=== PATIENT | female | born 1940 | race Caucasian/White ===

== ENCOUNTER 2021-12-01 05:44 | Inpatient (IN) | payer MEDICARE ==
[2021-12-01] MEDS ORDERED: Acetaminophen/HYDROcodone 325-5 MG Tab PO PRN (13:59)
[2021-12-01] MEDS ORDERED: Furosemide 80 MG Tab PO PRN (13:59)
[2021-12-01] MEDS ORDERED: [UNRECOGNIZED DRUG - REMARK] SCH (14:45)
[2021-12-01] MEDS: Acetaminophen/HYDROcodone 325-5 MG Tab PO PRN ×2 (17:32→22:36)
[2021-12-01] MEDS: prednisoLONE Acetate 1% Ophth Susp 5 ML Bottle EYEBOTH SCH (19:58)
[2021-12-01] MEDS: Nortriptyline 25 MG Cap PO PRN (19:58)
[2021-12-01] MEDS: Sodium Chloride 0.9% 10 ML Syringe FLUSH SCH ×2 (19:58→21:27)
[2021-12-01] MEDS: Heparin Sodium 100 Units/ML 3 ML Syringe FLUSH SCH (21:26)
[2021-12-02] MEDS: Loperamide 2 MG Cap PO PRN ×2 (00:16→11:34)
[2021-12-02] MEDS: Acetaminophen/HYDROcodone 325-5 MG Tab PO PRN ×4 (02:58→20:49)
[2021-12-02] MEDS: Rifampin 150 MG Cap PO SCH (07:59)
[2021-12-02] MEDS: Celecoxib 100 MG Cap PO SCH (07:59)
[2021-12-02] MEDS: Lisinopril 20 MG Tab PO SCH (07:59)
[2021-12-02] MEDS: amLODIPine 10 MG Tab PO SCH (08:00)
[2021-12-02] MEDS ORDERED: Pantoprazole 40 MG Tab.CR PO SCH (08:00)
[2021-12-02] MEDS: Enoxaparin 40 MG/0.4 ML Syringe SUBCUT SCH (08:00)
[2021-12-02] MEDS: Polyethylene Glycol 3350 Powder 17 GM Packet PO SCH (08:01)
[2021-12-02] MEDS: prednisoLONE Acetate 1% Ophth Susp 5 ML Bottle EYEBOTH SCH ×2 (08:01→20:53)
[2021-12-02] MEDS: Sodium Chloride 0.9% 10 ML Syringe FLUSH SCH ×3 (08:04→20:51)
[2021-12-02] MEDS: Heparin Sodium 100 Units/ML 3 ML Syringe FLUSH SCH ×2 (09:24→22:03)
[2021-12-02] MEDS ORDERED: Ondansetron 4 MG in Sodium Chloride 0.9% 100 ML IV STA (11:21)
[2021-12-02] MEDS ORDERED: Ondansetron 4 MG Tab.DIS PO STA (11:25)
[2021-12-02] MEDS: Ondansetron 4 MG/2 ML SDV IVPUSH PRN (13:43)
[2021-12-02] MEDS: Heparin Sodium 100 Units/ML 3 ML Syringe FLUSH PRN (13:44)
[2021-12-02] MEDS: Sodium Chloride 0.9% 10 ML Syringe FLUSH PRN ×2 (13:44→22:03)
[2021-12-02] MEDS: DULAGLUTIDE 1.5 MG/0.5 ML SQ SCH (15:29)
[2021-12-03] MEDS: Acetaminophen/HYDROcodone 325-5 MG Tab PO PRN ×4 (00:38→19:41)
[2021-12-03] MEDS: Loperamide 2 MG Cap PO PRN ×5 (03:59→19:41)
[2021-12-03] MEDS: Pantoprazole 40 MG Tab.CR PO SCH (06:42)
[2021-12-03] MEDS: Heparin Sodium 100 Units/ML 3 ML Syringe FLUSH PRN ×2 (06:52→21:12)
[2021-12-03] MEDS: Ondansetron 4 MG/2 ML SDV IVPUSH PRN ×2 (06:52→13:50)
[2021-12-03] MEDS: Sodium Chloride 0.9% 10 ML Syringe FLUSH PRN ×2 (06:53→19:43)
[2021-12-03] MEDS: Enoxaparin 40 MG/0.4 ML Syringe SUBCUT SCH (09:40)
[2021-12-03] MEDS: Celecoxib 100 MG Cap PO SCH (09:42)
[2021-12-03] MEDS: Rifampin 150 MG Cap PO SCH (09:42)
[2021-12-03] MEDS: amLODIPine 10 MG Tab PO SCH (09:42)
[2021-12-03] MEDS: Lisinopril 20 MG Tab PO SCH (09:43)
[2021-12-03] MEDS: prednisoLONE Acetate 1% Ophth Susp 5 ML Bottle EYEBOTH SCH ×2 (09:43→20:05)
[2021-12-03] MEDS: Polyethylene Glycol 3350 Powder 17 GM Packet PO SCH (09:45)
[2021-12-03] MEDS: Sodium Chloride 0.9% 10 ML Syringe FLUSH SCH ×2 (09:47→21:11)
[2021-12-03] MEDS: Heparin Sodium 100 Units/ML 3 ML Syringe FLUSH SCH ×2 (12:52→21:17)
[2021-12-03] MEDS: Nortriptyline 25 MG Cap PO PRN (21:13)
[2021-12-04] MEDS: Pantoprazole 40 MG Tab.CR PO SCH (06:13)
[2021-12-04] MEDS: Acetaminophen/HYDROcodone 325-5 MG Tab PO PRN (06:33)
[2021-12-04] MEDS: prednisoLONE Acetate 1% Ophth Susp 5 ML Bottle EYEBOTH SCH ×2 (08:04→19:46)
[2021-12-04] MEDS: Celecoxib 100 MG Cap PO SCH (08:05)
[2021-12-04] MEDS: Rifampin 150 MG Cap PO SCH (08:05)
[2021-12-04] MEDS: Lisinopril 20 MG Tab PO SCH (08:05)
[2021-12-04] MEDS: Enoxaparin 40 MG/0.4 ML Syringe SUBCUT SCH (08:06)
[2021-12-04] MEDS: amLODIPine 10 MG Tab PO SCH (08:06)
[2021-12-04] MEDS: Polyethylene Glycol 3350 Powder 17 GM Packet PO SCH (08:07)
[2021-12-04] MEDS: Sodium Chloride 0.9% 10 ML Syringe FLUSH SCH ×2 (08:08→19:46)
[2021-12-04] MEDS: BISMUTH SUBSALICYLATE 262 MG PO PRN ×2 (09:37→12:04)
[2021-12-04] MEDS: Heparin Sodium 100 Units/ML 3 ML Syringe FLUSH SCH ×2 (09:50→20:39)
[2021-12-04] MEDS: oxyCODONE 5 MG Tab PO PRN ×2 (13:58→20:38)
[2021-12-04] MEDS: Acetaminophen 325 MG Tab PO PRN (13:59)
[2021-12-04] MEDS: Pregabalin 50 MG Cap PO SCH (19:43)
[2021-12-04] MEDS: Nortriptyline 25 MG Cap PO PRN (20:39)
[2021-12-04] MEDS: Ondansetron 4 MG Tab.DIS PO PRN (20:39)
[2021-12-05] MEDS: Acetaminophen/HYDROcodone 325-5 MG Tab PO PRN ×3 (02:30→22:33)
[2021-12-05] MEDS: Pantoprazole 40 MG Tab.CR PO SCH (05:59)
[2021-12-05] MEDS: Enoxaparin 40 MG/0.4 ML Syringe SUBCUT SCH (08:22)
[2021-12-05] MEDS: Lisinopril 20 MG Tab PO SCH (08:23)
[2021-12-05] MEDS: Pregabalin 50 MG Cap PO SCH ×2 (08:23→19:52)
[2021-12-05] MEDS: Celecoxib 100 MG Cap PO SCH (08:23)
[2021-12-05] MEDS: Rifampin 150 MG Cap PO SCH (08:23)
[2021-12-05] MEDS: Ferrous Sulfate 325 MG Tab PO SCH (08:25)
[2021-12-05] MEDS: Sodium Chloride 0.9% 10 ML Syringe FLUSH SCH ×2 (08:26→19:52)
[2021-12-05] MEDS: amLODIPine 10 MG Tab PO SCH (08:26)
[2021-12-05] MEDS: prednisoLONE Acetate 1% Ophth Susp 5 ML Bottle EYEBOTH SCH ×2 (08:26→21:28)
[2021-12-05] MEDS: BISMUTH SUBSALICYLATE 262 MG PO PRN (08:39)
[2021-12-05] MEDS: oxyCODONE 5 MG Tab PO PRN ×2 (09:24→17:38)
[2021-12-05] MEDS: Heparin Sodium 100 Units/ML 3 ML Syringe FLUSH SCH ×2 (09:38→21:27)
[2021-12-05] MEDS: Sodium Chloride 0.9% 10 ML Syringe FLUSH PRN (21:26)
[2021-12-05] MEDS: Nortriptyline 25 MG Cap PO PRN (21:32)
[2021-12-06] MEDS: Acetaminophen/HYDROcodone 325-5 MG Tab PO PRN ×2 (03:07→20:05)
[2021-12-06] MEDS: Pantoprazole 40 MG Tab.CR PO SCH (06:22)
[2021-12-06] MEDS: Pregabalin 50 MG Cap PO SCH ×2 (08:20→20:05)
[2021-12-06] MEDS: amLODIPine 10 MG Tab PO SCH (08:21)
[2021-12-06] MEDS: oxyCODONE 5 MG Tab PO PRN ×2 (08:23→21:07)
[2021-12-06] MEDS: Lisinopril 20 MG Tab PO SCH (08:25)
[2021-12-06] MEDS: Sodium Chloride 0.9% 10 ML Syringe FLUSH SCH ×2 (08:26→22:15)
[2021-12-06] MEDS: Celecoxib 100 MG Cap PO SCH (08:26)
[2021-12-06] MEDS: Ferrous Sulfate 325 MG Tab PO SCH (08:26)
[2021-12-06] MEDS: prednisoLONE Acetate 1% Ophth Susp 5 ML Bottle EYEBOTH SCH ×2 (08:26→20:04)
[2021-12-06] MEDS: Enoxaparin 40 MG/0.4 ML Syringe SUBCUT SCH (08:26)
[2021-12-06] MEDS: Rifampin 150 MG Cap PO SCH (08:26)
[2021-12-06] MEDS: Heparin Sodium 100 Units/ML 3 ML Syringe FLUSH SCH ×2 (08:27→21:02)
[2021-12-06] MEDS: BISMUTH SUBSALICYLATE 262 MG PO PRN ×2 (11:07→16:57)
[2021-12-06] MEDS: Loperamide 2 MG Cap PO PRN (16:57)
[2021-12-06] MEDS: Sodium Chloride 0.9% 10 ML Syringe FLUSH PRN (21:02)
[2021-12-06] MEDS: Nortriptyline 25 MG Cap PO PRN (21:03)
[2021-12-07] MEDS: Acetaminophen/HYDROcodone 325-5 MG Tab PO PRN ×5 (02:34→20:25)
[2021-12-07] MEDS: Pantoprazole 40 MG Tab.CR PO SCH (06:14)
[2021-12-07] MEDS: Sodium Chloride 0.9% 10 ML Syringe FLUSH PRN ×2 (06:58→21:42)
[2021-12-07 07:19] LABS: CHLORIDE,CL 105 mmol/L (98-107); SODIUM,NA 140 mmol/L (136-145)
[2021-12-07] MEDS: Enoxaparin 40 MG/0.4 ML Syringe SUBCUT SCH (07:39)
[2021-12-07] MEDS: Celecoxib 100 MG Cap PO SCH (07:39)
[2021-12-07] MEDS: Ferrous Sulfate 325 MG Tab PO SCH (07:39)
[2021-12-07] MEDS: Rifampin 150 MG Cap PO SCH (07:39)
[2021-12-07] MEDS: Pregabalin 50 MG Cap PO SCH ×2 (07:39→20:27)
[2021-12-07] MEDS: Lisinopril 20 MG Tab PO SCH (07:40)
[2021-12-07] MEDS: prednisoLONE Acetate 1% Ophth Susp 5 ML Bottle EYEBOTH SCH ×2 (07:41→20:28)
[2021-12-07] MEDS: Sodium Chloride 0.9% 10 ML Syringe FLUSH SCH ×2 (07:44→20:24)
[2021-12-07] MEDS: amLODIPine 10 MG Tab PO SCH (07:51)
[2021-12-07] MEDS: Heparin Sodium 100 Units/ML 3 ML Syringe FLUSH SCH ×2 (10:16→21:43)
[2021-12-07] MEDS: oxyCODONE 5 MG Tab PO PRN (22:49)
[2021-12-08] MEDS: Acetaminophen/HYDROcodone 325-5 MG Tab PO PRN ×5 (03:25→20:35)
[2021-12-08] MEDS: Pantoprazole 40 MG Tab.CR PO SCH (06:26)
[2021-12-08] MEDS: Celecoxib 100 MG Cap PO SCH (07:21)
[2021-12-08] MEDS: Rifampin 150 MG Cap PO SCH (07:21)
[2021-12-08] MEDS: Lisinopril 20 MG Tab PO SCH (07:21)
[2021-12-08] MEDS: Pregabalin 50 MG Cap PO SCH ×2 (07:21→20:36)
[2021-12-08] MEDS: Ferrous Sulfate 325 MG Tab PO SCH (07:21)
[2021-12-08] MEDS: amLODIPine 10 MG Tab PO SCH (07:22)
[2021-12-08] MEDS: prednisoLONE Acetate 1% Ophth Susp 5 ML Bottle EYEBOTH SCH ×2 (07:23→20:39)
[2021-12-08] MEDS: Enoxaparin 40 MG/0.4 ML Syringe SUBCUT SCH (07:23)
[2021-12-08] MEDS: Sodium Chloride 0.9% 10 ML Syringe FLUSH SCH ×2 (07:26→20:40)
[2021-12-08] MEDS: Heparin Sodium 100 Units/ML 3 ML Syringe FLUSH SCH ×2 (08:17→21:37)
[2021-12-08] MEDS: Sodium Chloride 0.9% 10 ML Syringe FLUSH PRN (21:36)
[2021-12-09] MEDS: Acetaminophen/HYDROcodone 325-5 MG Tab PO PRN ×2 (01:44→11:32)
[2021-12-09] MEDS: Pantoprazole 40 MG Tab.CR PO SCH (07:43)
[2021-12-09] MEDS: Ferrous Sulfate 325 MG Tab PO SCH (08:24)
[2021-12-09] MEDS: prednisoLONE Acetate 1% Ophth Susp 5 ML Bottle EYEBOTH SCH ×2 (08:24→20:04)
[2021-12-09] MEDS: Rifampin 150 MG Cap PO SCH (08:24)
[2021-12-09] MEDS: Pregabalin 50 MG Cap PO SCH ×2 (08:24→19:51)
[2021-12-09] MEDS: Celecoxib 100 MG Cap PO SCH (08:24)
[2021-12-09] MEDS: amLODIPine 10 MG Tab PO SCH (08:25)
[2021-12-09] MEDS: Lisinopril 20 MG Tab PO SCH (08:25)
[2021-12-09] MEDS: Enoxaparin 40 MG/0.4 ML Syringe SUBCUT SCH (08:26)
[2021-12-09] MEDS: Sodium Chloride 0.9% 10 ML Syringe FLUSH SCH ×2 (08:27→19:54)
[2021-12-09] MEDS: Heparin Sodium 100 Units/ML 3 ML Syringe FLUSH SCH ×2 (09:29→21:48)
[2021-12-09] MEDS: DULAGLUTIDE 1.5 MG/0.5 ML SQ SCH (09:55)
[2021-12-09] MEDS: Acetaminophen 325 MG Tab PO PRN (13:56)
[2021-12-09] MEDS: BISMUTH SUBSALICYLATE 262 MG PO PRN (13:59)
[2021-12-09] MEDS: Loperamide 2 MG Cap PO PRN ×3 (17:38→21:49)
[2021-12-09] MEDS: oxyCODONE 5 MG Tab PO PRN (19:51)
[2021-12-10] MEDS: Acetaminophen/HYDROcodone 325-5 MG Tab PO PRN ×5 (00:30→17:33)
[2021-12-10] MEDS: Pantoprazole 40 MG Tab.CR PO SCH (06:15)
[2021-12-10] MEDS: Sodium Chloride 0.9% 10 ML Syringe FLUSH PRN ×2 (07:22→21:32)
[2021-12-10] MEDS: Heparin Sodium 100 Units/ML 3 ML Syringe FLUSH PRN (07:23)
[2021-12-10] MEDS: Rifampin 150 MG Cap PO SCH (09:07)
[2021-12-10] MEDS: Ferrous Sulfate 325 MG Tab PO SCH (09:08)
[2021-12-10] MEDS: Enoxaparin 40 MG/0.4 ML Syringe SUBCUT SCH (09:08)
[2021-12-10] MEDS: Pregabalin 50 MG Cap PO SCH ×2 (09:08→19:41)
[2021-12-10] MEDS: Celecoxib 100 MG Cap PO SCH (09:08)
[2021-12-10] MEDS: prednisoLONE Acetate 1% Ophth Susp 5 ML Bottle EYEBOTH SCH ×2 (09:09→19:41)
[2021-12-10] MEDS: Lisinopril 20 MG Tab PO SCH (09:12)
[2021-12-10] MEDS: amLODIPine 10 MG Tab PO SCH (09:12)
[2021-12-10] MEDS: Heparin Sodium 100 Units/ML 3 ML Syringe FLUSH SCH ×2 (10:01→21:32)
[2021-12-10] MEDS: Sodium Chloride 0.9% 10 ML Syringe FLUSH SCH ×2 (10:01→19:42)
[2021-12-10] MEDS: Acetaminophen 325 MG Tab PO PRN (10:35)
[2021-12-10] MEDS: oxyCODONE 5 MG Tab PO PRN (19:41)
[2021-12-10] MEDS: Nortriptyline 25 MG Cap PO PRN (21:31)
[2021-12-11] MEDS: Acetaminophen/HYDROcodone 325-5 MG Tab PO PRN (01:51)
[2021-12-11] MEDS: Pantoprazole 40 MG Tab.CR PO SCH (06:24)
[2021-12-11] MEDS: oxyCODONE 5 MG Tab PO PRN ×3 (06:24→21:11)
[2021-12-11] MEDS: prednisoLONE Acetate 1% Ophth Susp 5 ML Bottle EYEBOTH SCH ×2 (08:36→20:06)
[2021-12-11] MEDS: Sodium Chloride 0.9% 10 ML Syringe FLUSH SCH ×2 (08:38→19:45)
[2021-12-11] MEDS: Ferrous Sulfate 325 MG Tab PO SCH (08:39)
[2021-12-11] MEDS: Rifampin 150 MG Cap PO SCH (08:39)
[2021-12-11] MEDS: Pregabalin 50 MG Cap PO SCH ×2 (08:39→19:45)
[2021-12-11] MEDS: amLODIPine 10 MG Tab PO SCH (08:39)
[2021-12-11] MEDS: Celecoxib 100 MG Cap PO SCH (08:39)
[2021-12-11] MEDS: Lisinopril 20 MG Tab PO SCH (08:39)
[2021-12-11] MEDS: Enoxaparin 40 MG/0.4 ML Syringe SUBCUT SCH (08:45)
[2021-12-11] MEDS: Heparin Sodium 100 Units/ML 3 ML Syringe FLUSH SCH ×2 (10:05→21:08)
[2021-12-11] MEDS: Sodium Chloride 0.9% 10 ML Syringe FLUSH PRN ×2 (10:05→21:07)
[2021-12-11] MEDS: BISMUTH SUBSALICYLATE 262 MG PO PRN (10:08)
[2021-12-11] MEDS: Acetaminophen 325 MG Tab PO PRN (12:59)
[2021-12-11] MEDS: Ondansetron 4 MG/2 ML SDV IVPUSH PRN (13:01)
[2021-12-11] MEDS: Nortriptyline 25 MG Cap PO PRN (21:11)
[2021-12-12] MEDS: Acetaminophen/HYDROcodone 325-5 MG Tab PO PRN (02:26)
[2021-12-12] MEDS: Pantoprazole 40 MG Tab.CR PO SCH (06:36)
[2021-12-12] MEDS: oxyCODONE 5 MG Tab PO PRN ×3 (06:37→21:00)
[2021-12-12] MEDS: Sodium Chloride 0.9% 10 ML Syringe FLUSH SCH ×2 (09:11→20:12)
[2021-12-12] MEDS: Lisinopril 20 MG Tab PO SCH (09:12)
[2021-12-12] MEDS: Ferrous Sulfate 325 MG Tab PO SCH (09:12)
[2021-12-12] MEDS: Rifampin 150 MG Cap PO SCH (09:12)
[2021-12-12] MEDS: Pregabalin 50 MG Cap PO SCH ×2 (09:12→20:05)
[2021-12-12] MEDS: Celecoxib 100 MG Cap PO SCH (09:12)
[2021-12-12] MEDS: amLODIPine 10 MG Tab PO SCH (09:13)
[2021-12-12] MEDS: prednisoLONE Acetate 1% Ophth Susp 5 ML Bottle EYEBOTH SCH ×2 (09:13→20:11)
[2021-12-12] MEDS: Enoxaparin 40 MG/0.4 ML Syringe SUBCUT SCH (09:13)
[2021-12-12] MEDS: Sodium Chloride 0.9% 10 ML Syringe FLUSH PRN ×2 (10:18→21:02)
[2021-12-12] MEDS: Heparin Sodium 100 Units/ML 3 ML Syringe FLUSH SCH ×2 (10:19→21:02)
[2021-12-12] MEDS: Acetaminophen 325 MG Tab PO PRN (12:41)
[2021-12-12] MEDS: Nortriptyline 25 MG Cap PO PRN (21:00)
[2021-12-13] MEDS: Acetaminophen/HYDROcodone 325-5 MG Tab PO PRN ×3 (02:05→21:33)
[2021-12-13] MEDS: oxyCODONE 5 MG Tab PO PRN ×3 (05:01→23:57)
[2021-12-13] MEDS: Fluticasone Propionate Nasal Spray 9.9 ML BOTTLE NASBOTH PRN (05:10)
[2021-12-13] MEDS: Pantoprazole 40 MG Tab.CR PO SCH ×2 (05:11→06:11)
[2021-12-13] MEDS: Celecoxib 100 MG Cap PO SCH (07:40)
[2021-12-13] MEDS: Pregabalin 50 MG Cap PO SCH ×2 (07:40→20:09)
[2021-12-13] MEDS: Ferrous Sulfate 325 MG Tab PO SCH (07:40)
[2021-12-13] MEDS: Rifampin 150 MG Cap PO SCH (07:41)
[2021-12-13] MEDS: Lisinopril 20 MG Tab PO SCH (07:41)
[2021-12-13] MEDS: amLODIPine 10 MG Tab PO SCH (07:41)
[2021-12-13] MEDS: Enoxaparin 40 MG/0.4 ML Syringe SUBCUT SCH (07:41)
[2021-12-13] MEDS: prednisoLONE Acetate 1% Ophth Susp 5 ML Bottle EYEBOTH SCH ×2 (07:42→20:10)
[2021-12-13] MEDS: Sodium Chloride 0.9% 10 ML Syringe FLUSH SCH ×2 (07:42→20:12)
[2021-12-13] MEDS: Heparin Sodium 100 Units/ML 3 ML Syringe FLUSH SCH ×2 (08:53→21:30)
[2021-12-13] MEDS: BISMUTH SUBSALICYLATE 262 MG PO PRN (20:08)
[2021-12-13] MEDS: Sodium Chloride 0.9% 10 ML Syringe FLUSH PRN (21:29)
[2021-12-13] MEDS: Nortriptyline 25 MG Cap PO PRN (21:29)
[2021-12-14] MEDS: Acetaminophen/HYDROcodone 325-5 MG Tab PO PRN ×4 (05:05→19:40)
[2021-12-14] MEDS: Pantoprazole 40 MG Tab.CR PO SCH ×2 (05:05→08:54)
[2021-12-14] MEDS: Sodium Chloride 0.9% 10 ML Syringe FLUSH PRN ×2 (06:26→20:49)
[2021-12-14] MEDS: Heparin Sodium 100 Units/ML 3 ML Syringe FLUSH PRN (06:27)
[2021-12-14 07:10] LABS: CHLORIDE,CL 103 mmol/L (98-107); SODIUM,NA 139 mmol/L (136-145)
[2021-12-14 07:11] LABS: ANION GAP 7.8 mmol/L (5-15)
[2021-12-14] MEDS: prednisoLONE Acetate 1% Ophth Susp 5 ML Bottle EYEBOTH SCH ×2 (08:29→19:43)
[2021-12-14] MEDS: Pregabalin 50 MG Cap PO SCH ×2 (08:30→19:40)
[2021-12-14] MEDS: Celecoxib 100 MG Cap PO SCH (08:30)
[2021-12-14] MEDS: Ferrous Sulfate 325 MG Tab PO SCH (08:30)
[2021-12-14] MEDS: Sodium Chloride 0.9% 10 ML Syringe FLUSH SCH ×2 (08:30→19:42)
[2021-12-14] MEDS: Rifampin 150 MG Cap PO SCH (08:30)
[2021-12-14] MEDS: Enoxaparin 40 MG/0.4 ML Syringe SUBCUT SCH (08:30)
[2021-12-14] MEDS: Lisinopril 20 MG Tab PO SCH (08:31)
[2021-12-14] MEDS: amLODIPine 10 MG Tab PO SCH (08:31)
[2021-12-14] MEDS: Heparin Sodium 100 Units/ML 3 ML Syringe FLUSH SCH ×2 (09:35→20:51)
[2021-12-14] MEDS: Furosemide 40 MG Tab PO SCH (09:35)
[2021-12-14] MEDS: BISMUTH SUBSALICYLATE 262 MG PO PRN ×2 (13:06→19:44)
[2021-12-14] MEDS: oxyCODONE 5 MG Tab PO PRN (21:10)
[2021-12-14] MEDS: Nortriptyline 25 MG Cap PO PRN (21:10)
[2021-12-15] MEDS: Acetaminophen/HYDROcodone 325-5 MG Tab PO PRN ×3 (02:51→20:03)
[2021-12-15] MEDS: oxyCODONE 5 MG Tab PO PRN ×2 (05:24→14:23)
[2021-12-15] MEDS: Pantoprazole 40 MG Tab.CR PO SCH ×2 (05:25→06:46)
[2021-12-15] MEDS: Ferrous Sulfate 325 MG Tab PO SCH (07:37)
[2021-12-15] MEDS: Rifampin 150 MG Cap PO SCH (07:37)
[2021-12-15] MEDS: Pregabalin 50 MG Cap PO SCH ×3 (07:37→20:05)
[2021-12-15] MEDS: prednisoLONE Acetate 1% Ophth Susp 5 ML Bottle EYEBOTH SCH ×2 (07:37→21:00)
[2021-12-15] MEDS: Furosemide 40 MG Tab PO SCH (07:37)
[2021-12-15] MEDS: Celecoxib 100 MG Cap PO SCH (07:37)
[2021-12-15] MEDS: Enoxaparin 40 MG/0.4 ML Syringe SUBCUT SCH (07:38)
[2021-12-15] MEDS: Sodium Chloride 0.9% 10 ML Syringe FLUSH SCH ×2 (07:38→20:04)
[2021-12-15] MEDS: amLODIPine 10 MG Tab PO SCH (07:39)
[2021-12-15] MEDS: Lisinopril 20 MG Tab PO SCH (07:39)
[2021-12-15] MEDS: Heparin Sodium 100 Units/ML 3 ML Syringe FLUSH SCH ×2 (09:25→21:25)
[2021-12-15] MEDS ORDERED: [UNRECOGNIZED DRUG - REMARK] SCH ×2 (12:30→12:45)
[2021-12-15] MEDS: Sodium Chloride 0.9% 10 ML Syringe FLUSH PRN (21:25)
[2021-12-15] MEDS: Nortriptyline 25 MG Cap PO PRN (21:27)
[2021-12-16] MEDS: Acetaminophen/HYDROcodone 325-5 MG Tab PO PRN ×4 (01:45→20:03)
[2021-12-16] MEDS: Pantoprazole 40 MG Tab.CR PO SCH (06:02)
[2021-12-16] MEDS: oxyCODONE 5 MG Tab PO PRN (06:02)
[2021-12-16] MEDS: prednisoLONE Acetate 1% Ophth Susp 5 ML Bottle EYEBOTH SCH ×2 (07:38→20:06)
[2021-12-16] MEDS: Celecoxib 100 MG Cap PO SCH (07:39)
[2021-12-16] MEDS: Rifampin 150 MG Cap PO SCH (07:39)
[2021-12-16] MEDS: Ferrous Sulfate 325 MG Tab PO SCH (07:39)
[2021-12-16] MEDS: Enoxaparin 40 MG/0.4 ML Syringe SUBCUT SCH (07:39)
[2021-12-16] MEDS: Furosemide 40 MG Tab PO SCH (07:39)
[2021-12-16] MEDS: Pregabalin 50 MG Cap PO SCH ×3 (07:39→20:05)
[2021-12-16] MEDS: Lisinopril 20 MG Tab PO SCH (07:40)
[2021-12-16] MEDS: amLODIPine 10 MG Tab PO SCH (07:40)
[2021-12-16] MEDS: Sodium Chloride 0.9% 10 ML Syringe FLUSH SCH ×2 (07:40→20:04)
[2021-12-16] MEDS: Heparin Sodium 100 Units/ML 3 ML Syringe FLUSH SCH ×2 (08:51→20:49)
[2021-12-16] MEDS: DULAGLUTIDE 1.5 MG/0.5 ML SQ SCH (09:47)
[2021-12-16] MEDS: Nortriptyline 25 MG Cap PO PRN (23:24)
[2021-12-17] MEDS: Acetaminophen/HYDROcodone 325-5 MG Tab PO PRN (04:30)
[2021-12-17] MEDS: Pantoprazole 40 MG Tab.CR PO SCH (06:02)
[2021-12-17] MEDS: Enoxaparin 40 MG/0.4 ML Syringe SUBCUT SCH (09:33)
[2021-12-17] MEDS: Acetaminophen 325 MG Tab PO PRN ×2 (09:35→17:45)
[2021-12-17] MEDS: Rifampin 150 MG Cap PO SCH (09:35)
[2021-12-17] MEDS: Furosemide 40 MG Tab PO SCH (09:36)
[2021-12-17] MEDS: Lisinopril 20 MG Tab PO SCH (09:36)
[2021-12-17] MEDS: Ferrous Sulfate 325 MG Tab PO SCH (09:36)
[2021-12-17] MEDS: amLODIPine 10 MG Tab PO SCH (09:37)
[2021-12-17] MEDS: Celecoxib 100 MG Cap PO SCH (09:37)
[2021-12-17] MEDS: Pregabalin 50 MG Cap PO SCH ×3 (09:37→20:09)
[2021-12-17] MEDS: prednisoLONE Acetate 1% Ophth Susp 5 ML Bottle EYEBOTH SCH ×2 (09:38→20:10)
[2021-12-17] MEDS: Sodium Chloride 0.9% 10 ML Syringe FLUSH SCH ×2 (09:39→20:10)
[2021-12-17] MEDS: Fluticasone Propionate Nasal Spray 9.9 ML BOTTLE NASBOTH PRN (09:39)
[2021-12-17] MEDS: Sodium Chloride 0.9% 10 ML Syringe FLUSH PRN (10:10)
[2021-12-17] MEDS: Heparin Sodium 100 Units/ML 3 ML Syringe FLUSH SCH ×2 (10:11→20:48)
[2021-12-17] MEDS: oxyCODONE 5 MG Tab PO PRN (17:44)
[2021-12-17] MEDS: Nortriptyline 25 MG Cap PO PRN (20:09)
[2021-12-18] MEDS: Acetaminophen/HYDROcodone 325-5 MG Tab PO PRN ×2 (02:44→16:03)
[2021-12-18] MEDS: Pantoprazole 40 MG Tab.CR PO SCH (06:33)
[2021-12-18] MEDS: Rifampin 150 MG Cap PO SCH (07:49)
[2021-12-18] MEDS: prednisoLONE Acetate 1% Ophth Susp 5 ML Bottle EYEBOTH SCH ×2 (07:49→19:44)
[2021-12-18] MEDS: Enoxaparin 40 MG/0.4 ML Syringe SUBCUT SCH (07:49)
[2021-12-18] MEDS: Fluticasone Propionate Nasal Spray 9.9 ML BOTTLE NASBOTH PRN (07:49)
[2021-12-18] MEDS: Lisinopril 20 MG Tab PO SCH (07:50)
[2021-12-18] MEDS: Ferrous Sulfate 325 MG Tab PO SCH (07:50)
[2021-12-18] MEDS: Celecoxib 100 MG Cap PO SCH (07:50)
[2021-12-18] MEDS: Pregabalin 50 MG Cap PO SCH ×3 (07:50→19:43)
[2021-12-18] MEDS: Furosemide 40 MG Tab PO SCH ×3 (07:50→19:43)
[2021-12-18] MEDS: amLODIPine 10 MG Tab PO SCH (07:50)
[2021-12-18] MEDS: Acetaminophen 325 MG Tab PO PRN (07:51)
[2021-12-18] MEDS: Sodium Chloride 0.9% 10 ML Syringe FLUSH SCH ×2 (07:58→19:45)
[2021-12-18] MEDS: Heparin Sodium 100 Units/ML 3 ML Syringe FLUSH SCH ×2 (09:38→21:05)
[2021-12-18] MEDS: Potassium Chloride 10 MEQ Tab.ER PO SCH (09:43)
[2021-12-18] MEDS: oxyCODONE 5 MG Tab PO PRN ×2 (09:57→19:42)
[2021-12-18] MEDS: Nortriptyline 25 MG Cap PO PRN (19:43)
[2021-12-19] MEDS: Acetaminophen/HYDROcodone 325-5 MG Tab PO PRN ×3 (00:08→23:36)
[2021-12-19] MEDS: Pantoprazole 40 MG Tab.CR PO SCH (06:31)
[2021-12-19] MEDS: Enoxaparin 40 MG/0.4 ML Syringe SUBCUT SCH (08:15)
[2021-12-19] MEDS: prednisoLONE Acetate 1% Ophth Susp 5 ML Bottle EYEBOTH SCH ×2 (08:15→20:05)
[2021-12-19] MEDS: Celecoxib 100 MG Cap PO SCH (08:16)
[2021-12-19] MEDS: Furosemide 40 MG Tab PO SCH ×2 (08:16→19:02)
[2021-12-19] MEDS: Rifampin 150 MG Cap PO SCH (08:16)
[2021-12-19] MEDS: Potassium Chloride 10 MEQ Tab.ER PO SCH (08:16)
[2021-12-19] MEDS: Pregabalin 50 MG Cap PO SCH ×3 (08:17→20:03)
[2021-12-19] MEDS: oxyCODONE 5 MG Tab PO PRN (08:17)
[2021-12-19] MEDS: amLODIPine 10 MG Tab PO SCH (08:18)
[2021-12-19] MEDS: Ferrous Sulfate 325 MG Tab PO SCH (08:18)
[2021-12-19] MEDS: Lisinopril 20 MG Tab PO SCH (08:18)
[2021-12-19] MEDS: Acetaminophen 325 MG Tab PO PRN (08:18)
[2021-12-19] MEDS: Sodium Chloride 0.9% 10 ML Syringe FLUSH SCH ×2 (08:20→20:05)
[2021-12-19] MEDS: Sodium Chloride 0.9% 10 ML Syringe FLUSH PRN (09:12)
[2021-12-19] MEDS: Heparin Sodium 100 Units/ML 3 ML Syringe FLUSH SCH ×2 (09:13→20:43)
[2021-12-19] MEDS: Nortriptyline 25 MG Cap PO PRN (20:03)
[2021-12-20] MEDS: Enoxaparin 40 MG/0.4 ML Syringe SUBCUT SCH (09:27)
[2021-12-20] MEDS: Celecoxib 100 MG Cap PO SCH (09:30)
[2021-12-20] MEDS: Pregabalin 50 MG Cap PO SCH ×3 (09:31→19:47)
[2021-12-20] MEDS: Acetaminophen 325 MG Tab PO PRN (09:31)
[2021-12-20] MEDS: oxyCODONE 5 MG Tab PO PRN (09:31)
[2021-12-20] MEDS: Potassium Chloride 10 MEQ Tab.ER PO SCH (09:32)
[2021-12-20] MEDS: Lisinopril 20 MG Tab PO SCH (09:32)
[2021-12-20] MEDS: Furosemide 40 MG Tab PO SCH (09:32)
[2021-12-20] MEDS: Rifampin 150 MG Cap PO SCH (09:32)
[2021-12-20] MEDS: Ferrous Sulfate 325 MG Tab PO SCH (09:32)
[2021-12-20] MEDS: amLODIPine 10 MG Tab PO SCH (09:33)
[2021-12-20] MEDS: Pantoprazole 40 MG Tab.CR PO SCH (09:33)
[2021-12-20] MEDS: prednisoLONE Acetate 1% Ophth Susp 5 ML Bottle EYEBOTH SCH ×2 (09:34→19:52)
[2021-12-20] MEDS: Fluticasone Propionate Nasal Spray 9.9 ML BOTTLE NASBOTH PRN (09:35)
[2021-12-20] MEDS: Sodium Chloride 0.9% 10 ML Syringe FLUSH SCH ×2 (09:38→21:28)
[2021-12-20] MEDS: Heparin Sodium 100 Units/ML 3 ML Syringe FLUSH SCH ×2 (09:39→20:34)
[2021-12-20] MEDS: Acetaminophen/HYDROcodone 325-5 MG Tab PO PRN (19:11)
[2021-12-20] MEDS: Nortriptyline 25 MG Cap PO PRN (19:47)
[2021-12-21] MEDS: Acetaminophen/HYDROcodone 325-5 MG Tab PO PRN ×2 (00:10→17:43)
[2021-12-21] MEDS: oxyCODONE 5 MG Tab PO PRN ×2 (05:41→21:54)
[2021-12-21] MEDS: Pantoprazole 40 MG Tab.CR PO SCH (06:25)
[2021-12-21 07:23] LABS: CHLORIDE,CL 102 mmol/L (98-107); SODIUM,NA 139 mmol/L (136-145)
[2021-12-21 07:24] LABS: ANION GAP 5.6 mmol/L (5-15)
[2021-12-21] MEDS: Pregabalin 50 MG Cap PO SCH ×3 (08:37→19:49)
[2021-12-21] MEDS: Lisinopril 20 MG Tab PO SCH (08:37)
[2021-12-21] MEDS: Celecoxib 100 MG Cap PO SCH (08:37)
[2021-12-21] MEDS: Rifampin 150 MG Cap PO SCH (08:37)
[2021-12-21] MEDS: Furosemide 40 MG Tab PO SCH ×2 (08:38→17:44)
[2021-12-21] MEDS: Ferrous Sulfate 325 MG Tab PO SCH (08:38)
[2021-12-21] MEDS: amLODIPine 10 MG Tab PO SCH (08:38)
[2021-12-21] MEDS: Potassium Chloride 10 MEQ Tab.ER PO SCH (08:38)
[2021-12-21] MEDS: Enoxaparin 40 MG/0.4 ML Syringe SUBCUT SCH (08:38)
[2021-12-21] MEDS: Sodium Chloride 0.9% 10 ML Syringe FLUSH SCH ×2 (08:38→19:51)
[2021-12-21] MEDS: prednisoLONE Acetate 1% Ophth Susp 5 ML Bottle EYEBOTH SCH ×2 (08:39→19:51)
[2021-12-21] MEDS: Fluticasone Propionate Nasal Spray 9.9 ML BOTTLE NASBOTH PRN (08:40)
[2021-12-21] MEDS: Sodium Chloride 0.9% 10 ML Syringe FLUSH PRN (09:24)
[2021-12-21] MEDS: Heparin Sodium 100 Units/ML 3 ML Syringe FLUSH SCH ×2 (09:25→20:36)
[2021-12-21] MEDS: Acetaminophen 325 MG Tab PO PRN (11:21)
[2021-12-21] MEDS: Nortriptyline 25 MG Cap PO PRN (19:49)
[2021-12-22] MEDS: Pantoprazole 40 MG Tab.CR PO SCH (06:23)
[2021-12-22] MEDS: Sodium Chloride 0.9% 10 ML Syringe FLUSH SCH ×2 (08:48→19:50)
[2021-12-22] MEDS: prednisoLONE Acetate 1% Ophth Susp 5 ML Bottle EYEBOTH SCH ×2 (08:49→19:52)
[2021-12-22] MEDS: Fluticasone Propionate Nasal Spray 9.9 ML BOTTLE NASBOTH PRN (08:49)
[2021-12-22] MEDS: Rifampin 150 MG Cap PO SCH (08:50)
[2021-12-22] MEDS: Enoxaparin 40 MG/0.4 ML Syringe SUBCUT SCH (08:50)
[2021-12-22] MEDS: oxyCODONE 5 MG Tab PO PRN ×2 (08:50→21:09)
[2021-12-22] MEDS: Lisinopril 20 MG Tab PO SCH (08:51)
[2021-12-22] MEDS: Celecoxib 100 MG Cap PO SCH (08:51)
[2021-12-22] MEDS: Ferrous Sulfate 325 MG Tab PO SCH (08:51)
[2021-12-22] MEDS: Potassium Chloride 10 MEQ Tab.ER PO SCH (08:51)
[2021-12-22] MEDS: amLODIPine 10 MG Tab PO SCH (08:51)
[2021-12-22] MEDS: Pregabalin 50 MG Cap PO SCH ×3 (08:51→19:52)
[2021-12-22] MEDS: Furosemide 40 MG Tab PO SCH ×2 (08:52→16:02)
[2021-12-22] MEDS: Heparin Sodium 100 Units/ML 3 ML Syringe FLUSH SCH ×2 (09:58→21:09)
[2021-12-22] MEDS: Sodium Chloride 0.9% 10 ML Syringe FLUSH PRN (09:58)
[2021-12-22] MEDS: Acetaminophen/HYDROcodone 325-5 MG Tab PO PRN (17:46)
[2021-12-22] MEDS: Nortriptyline 25 MG Cap PO PRN (21:09)
[2021-12-23] MEDS: Pantoprazole 40 MG Tab.CR PO SCH (06:14)
[2021-12-23] MEDS: Acetaminophen/HYDROcodone 325-5 MG Tab PO PRN ×2 (06:16→11:43)
[2021-12-23] MEDS: Enoxaparin 40 MG/0.4 ML Syringe SUBCUT SCH (08:10)
[2021-12-23] MEDS: Ferrous Sulfate 325 MG Tab PO SCH (08:11)
[2021-12-23] MEDS: Celecoxib 100 MG Cap PO SCH (08:11)
[2021-12-23] MEDS: Rifampin 150 MG Cap PO SCH (08:11)
[2021-12-23] MEDS: Potassium Chloride 10 MEQ Tab.ER PO SCH (08:12)
[2021-12-23] MEDS: Furosemide 40 MG Tab PO SCH ×2 (08:12→15:53)
[2021-12-23] MEDS: Lisinopril 20 MG Tab PO SCH (08:12)
[2021-12-23] MEDS: amLODIPine 10 MG Tab PO SCH (08:12)
[2021-12-23] MEDS: Pregabalin 50 MG Cap PO SCH ×3 (08:12→19:35)
[2021-12-23] MEDS: Sodium Chloride 0.9% 10 ML Syringe FLUSH SCH ×2 (08:13→19:35)
[2021-12-23] MEDS: prednisoLONE Acetate 1% Ophth Susp 5 ML Bottle EYEBOTH SCH ×2 (08:22→19:36)
[2021-12-23] MEDS: DULAGLUTIDE 1.5 MG/0.5 ML SQ SCH (08:56)
[2021-12-23] MEDS: Heparin Sodium 100 Units/ML 3 ML Syringe FLUSH SCH ×2 (08:56→20:38)
[2021-12-23] MEDS: oxyCODONE 5 MG Tab PO PRN (20:36)
[2021-12-23] MEDS: Nortriptyline 25 MG Cap PO PRN (20:36)
[2021-12-24] MEDS: Acetaminophen/HYDROcodone 325-5 MG Tab PO PRN ×3 (04:38→15:50)
[2021-12-24] MEDS: Pantoprazole 40 MG Tab.CR PO SCH (06:36)
[2021-12-24] MEDS: Sodium Chloride 0.9% 10 ML Syringe FLUSH PRN (06:37)
[2021-12-24] MEDS: Sodium Chloride 0.9% 10 ML Syringe FLUSH SCH ×2 (08:45→20:18)
[2021-12-24] MEDS: Enoxaparin 40 MG/0.4 ML Syringe SUBCUT SCH (08:46)
[2021-12-24] MEDS: Heparin Sodium 100 Units/ML 3 ML Syringe FLUSH SCH ×2 (08:47→21:29)
[2021-12-24] MEDS: Rifampin 150 MG Cap PO SCH (08:47)
[2021-12-24] MEDS: Celecoxib 100 MG Cap PO SCH (08:47)
[2021-12-24] MEDS: Pregabalin 50 MG Cap PO SCH ×3 (08:48→20:18)
[2021-12-24] MEDS: Ferrous Sulfate 325 MG Tab PO SCH (08:48)
[2021-12-24] MEDS: amLODIPine 10 MG Tab PO SCH (08:48)
[2021-12-24] MEDS: Potassium Chloride 10 MEQ Tab.ER PO SCH (08:48)
[2021-12-24] MEDS: Furosemide 40 MG Tab PO SCH ×2 (08:48→15:50)
[2021-12-24] MEDS: prednisoLONE Acetate 1% Ophth Susp 5 ML Bottle EYEBOTH SCH ×2 (08:49→20:18)
[2021-12-24] MEDS: Lisinopril 20 MG Tab PO SCH (08:49)
[2021-12-24] MEDS: BISMUTH SUBSALICYLATE 262 MG PO PRN (08:56)
[2021-12-24] MEDS: Ondansetron 4 MG Tab.DIS PO PRN ×2 (08:59→21:29)
[2021-12-24] MEDS: oxyCODONE 5 MG Tab PO PRN (12:00)
[2021-12-24] MEDS: Nortriptyline 25 MG Cap PO PRN (21:29)
[2021-12-25] MEDS: oxyCODONE 5 MG Tab PO PRN (02:10)
[2021-12-25] MEDS: Pantoprazole 40 MG Tab.CR PO SCH (06:23)
[2021-12-25] MEDS: Ferrous Sulfate 325 MG Tab PO SCH (09:00)
[2021-12-25] MEDS: Furosemide 40 MG Tab PO SCH ×2 (09:00→16:41)
[2021-12-25] MEDS: Pregabalin 50 MG Cap PO SCH ×3 (09:00→20:14)
[2021-12-25] MEDS: amLODIPine 10 MG Tab PO SCH (09:00)
[2021-12-25] MEDS: Lisinopril 20 MG Tab PO SCH (09:00)
[2021-12-25] MEDS: Celecoxib 100 MG Cap PO SCH (09:01)
[2021-12-25] MEDS: Rifampin 150 MG Cap PO SCH (09:01)
[2021-12-25] MEDS: Potassium Chloride 10 MEQ Tab.ER PO SCH (09:01)
[2021-12-25] MEDS: prednisoLONE Acetate 1% Ophth Susp 5 ML Bottle EYEBOTH SCH ×2 (09:02→20:16)
[2021-12-25] MEDS: Enoxaparin 40 MG/0.4 ML Syringe SUBCUT SCH (09:03)
[2021-12-25] MEDS: Sodium Chloride 0.9% 10 ML Syringe FLUSH SCH ×2 (09:03→20:13)
[2021-12-25] MEDS: Heparin Sodium 100 Units/ML 3 ML Syringe FLUSH SCH ×2 (09:06→21:01)
[2021-12-25] MEDS: Acetaminophen/HYDROcodone 325-5 MG Tab PO PRN (12:23)
[2021-12-25] MEDS: Nortriptyline 25 MG Cap PO PRN (20:14)
[2021-12-26] MEDS: Acetaminophen 325 MG Tab PO PRN ×2 (02:31→19:42)
[2021-12-26] MEDS: Pantoprazole 40 MG Tab.CR PO SCH (06:37)
[2021-12-26] MEDS: Acetaminophen/HYDROcodone 325-5 MG Tab PO PRN (06:37)
[2021-12-26] MEDS: Celecoxib 100 MG Cap PO SCH (08:30)
[2021-12-26] MEDS: Ferrous Sulfate 325 MG Tab PO SCH (09:09)
[2021-12-26] MEDS: Pregabalin 50 MG Cap PO SCH ×3 (09:10→19:39)
[2021-12-26] MEDS: Potassium Chloride 10 MEQ Tab.ER PO SCH (09:10)
[2021-12-26] MEDS: amLODIPine 10 MG Tab PO SCH (09:10)
[2021-12-26] MEDS: Furosemide 40 MG Tab PO SCH ×2 (09:10→15:35)
[2021-12-26] MEDS: Lisinopril 20 MG Tab PO SCH (09:10)
[2021-12-26] MEDS: Enoxaparin 40 MG/0.4 ML Syringe SUBCUT SCH (09:11)
[2021-12-26] MEDS: Rifampin 150 MG Cap PO SCH (09:11)
[2021-12-26] MEDS: prednisoLONE Acetate 1% Ophth Susp 5 ML Bottle EYEBOTH SCH ×2 (09:12→19:40)
[2021-12-26] MEDS: Heparin Sodium 100 Units/ML 3 ML Syringe FLUSH SCH ×2 (09:12→20:25)
[2021-12-26] MEDS: Sodium Chloride 0.9% 10 ML Syringe FLUSH SCH ×2 (09:13→19:39)
[2021-12-26] MEDS: Nortriptyline 25 MG Cap PO PRN (19:39)
[2021-12-27] MEDS: Acetaminophen/HYDROcodone 325-5 MG Tab PO PRN ×3 (01:24→19:50)
[2021-12-27] MEDS: Pantoprazole 40 MG Tab.CR PO SCH (06:04)
[2021-12-27] MEDS: prednisoLONE Acetate 1% Ophth Susp 5 ML Bottle EYEBOTH SCH ×2 (08:54→19:51)
[2021-12-27] MEDS: Furosemide 40 MG Tab PO SCH ×2 (08:55→13:58)
[2021-12-27] MEDS: Ferrous Sulfate 325 MG Tab PO SCH (08:55)
[2021-12-27] MEDS: Potassium Chloride 10 MEQ Tab.ER PO SCH (08:55)
[2021-12-27] MEDS: amLODIPine 10 MG Tab PO SCH (08:55)
[2021-12-27] MEDS: Rifampin 150 MG Cap PO SCH (08:55)
[2021-12-27] MEDS: Heparin Sodium 100 Units/ML 3 ML Syringe FLUSH SCH ×2 (08:56→20:31)
[2021-12-27] MEDS: Sodium Chloride 0.9% 10 ML Syringe FLUSH SCH ×2 (08:56→19:55)
[2021-12-27] MEDS: Celecoxib 100 MG Cap PO SCH (08:56)
[2021-12-27] MEDS: Lisinopril 20 MG Tab PO SCH (08:57)
[2021-12-27] MEDS: Pregabalin 50 MG Cap PO SCH ×3 (08:59→19:50)
[2021-12-27] MEDS: Enoxaparin 40 MG/0.4 ML Syringe SUBCUT SCH (08:59)
[2021-12-27] MEDS: Ondansetron 4 MG Tab.DIS PO PRN (09:41)
[2021-12-27] MEDS: Hypromellose 0.3% Ophth Soln 15 ML Bottle EYEBOTH PRN ×2 (16:14→19:50)
[2021-12-27] MEDS: Nortriptyline 25 MG Cap PO PRN (19:50)
[2021-12-28] MEDS: Acetaminophen/HYDROcodone 325-5 MG Tab PO PRN ×2 (05:52→13:20)
[2021-12-28] MEDS: Pantoprazole 40 MG Tab.CR PO SCH (05:59)
[2021-12-28 07:26] LABS: ANION GAP 7.9 mmol/L (5-15)
[2021-12-28] MEDS: Enoxaparin 40 MG/0.4 ML Syringe SUBCUT SCH (09:39)
[2021-12-28] MEDS: Rifampin 150 MG Cap PO SCH (09:40)
[2021-12-28] MEDS: Lisinopril 20 MG Tab PO SCH (09:41)
[2021-12-28] MEDS: Ferrous Sulfate 325 MG Tab PO SCH (09:42)
[2021-12-28] MEDS: Celecoxib 100 MG Cap PO SCH (09:42)
[2021-12-28] MEDS: Furosemide 40 MG Tab PO SCH (09:42)
[2021-12-28] MEDS: Pregabalin 50 MG Cap PO SCH ×3 (09:43→19:49)
[2021-12-28] MEDS: Potassium Chloride 10 MEQ Tab.ER PO SCH (09:43)
[2021-12-28] MEDS: oxyCODONE 5 MG Tab PO PRN (09:43)
[2021-12-28] MEDS: Hypromellose 0.3% Ophth Soln 15 ML Bottle EYEBOTH PRN (09:45)
[2021-12-28] MEDS: amLODIPine 10 MG Tab PO SCH (09:45)
[2021-12-28] MEDS: prednisoLONE Acetate 1% Ophth Susp 5 ML Bottle EYEBOTH SCH ×2 (09:46→19:49)
[2021-12-28] MEDS: Sodium Chloride 0.9% 10 ML Syringe FLUSH SCH ×2 (09:47→19:48)
[2021-12-28] MEDS: Heparin Sodium 100 Units/ML 3 ML Syringe FLUSH SCH ×2 (09:48→20:31)
[2021-12-28] MEDS: Nortriptyline 25 MG Cap PO PRN (20:31)
[2021-12-29] MEDS: oxyCODONE 5 MG Tab PO PRN ×2 (01:33→12:39)
[2021-12-29] MEDS: Hypromellose 0.3% Ophth Soln 15 ML Bottle EYEBOTH PRN ×2 (01:35→19:48)
[2021-12-29] MEDS: Pantoprazole 40 MG Tab.CR PO SCH (06:11)
[2021-12-29 07:10] LABS: ANION GAP 7.8 mmol/L (5-15)
[2021-12-29] MEDS ORDERED: Furosemide 40 MG Tab PO SCH (08:00)
[2021-12-29] MEDS: Sodium Chloride 0.9% 10 ML Syringe FLUSH SCH ×2 (08:35→19:47)
[2021-12-29] MEDS: Enoxaparin 40 MG/0.4 ML Syringe SUBCUT SCH (08:37)
[2021-12-29] MEDS: Rifampin 150 MG Cap PO SCH (08:38)
[2021-12-29] MEDS: Acetaminophen 325 MG Tab PO PRN ×2 (08:39→17:42)
[2021-12-29] MEDS: Pregabalin 50 MG Cap PO SCH ×3 (08:39→19:47)
[2021-12-29] MEDS: amLODIPine 10 MG Tab PO SCH (08:39)
[2021-12-29] MEDS: Potassium Chloride 10 MEQ Tab.ER PO SCH (08:39)
[2021-12-29] MEDS: prednisoLONE Acetate 1% Ophth Susp 5 ML Bottle EYEBOTH SCH ×2 (08:40→19:48)
[2021-12-29] MEDS: Sodium Chloride 0.9% 10 ML Syringe FLUSH PRN (09:13)
[2021-12-29] MEDS: Heparin Sodium 100 Units/ML 3 ML Syringe FLUSH SCH ×2 (09:13→20:44)
[2021-12-29] MEDS: Nortriptyline 25 MG Cap PO PRN (20:44)
[2021-12-30] MEDS: oxyCODONE 5 MG Tab PO PRN ×2 (01:56→23:51)
[2021-12-30] MEDS: Pantoprazole 40 MG Tab.CR PO SCH (06:18)
[2021-12-30] MEDS: Heparin Sodium 100 Units/ML 3 ML Syringe FLUSH SCH ×2 (08:37→21:28)
[2021-12-30] MEDS: Enoxaparin 40 MG/0.4 ML Syringe SUBCUT SCH (08:37)
[2021-12-30] MEDS: Lisinopril 20 MG Tab PO SCH (08:39)
[2021-12-30] MEDS: Sodium Chloride 0.9% 10 ML Syringe FLUSH SCH ×2 (08:39→20:29)
[2021-12-30] MEDS: Furosemide 20 MG Tab PO SCH (08:39)
[2021-12-30] MEDS: Rifampin 150 MG Cap PO SCH (08:39)
[2021-12-30] MEDS: amLODIPine 10 MG Tab PO SCH (08:40)
[2021-12-30] MEDS: Ondansetron 4 MG Tab.DIS PO PRN ×2 (08:40→20:25)
[2021-12-30] MEDS: Pregabalin 50 MG Cap PO SCH ×3 (08:40→20:25)
[2021-12-30] MEDS: Acetaminophen/HYDROcodone 325-5 MG Tab PO PRN ×2 (08:40→14:57)
[2021-12-30] MEDS: Potassium Chloride 10 MEQ Tab.ER PO SCH (08:40)
[2021-12-30] MEDS: BISMUTH SUBSALICYLATE 262 MG PO PRN (08:41)
[2021-12-30] MEDS: prednisoLONE Acetate 1% Ophth Susp 5 ML Bottle EYEBOTH SCH ×2 (08:41→20:35)
[2021-12-30] MEDS: DULAGLUTIDE 1.5 MG/0.5 ML SQ SCH (08:45)
[2021-12-30] MEDS: Hypromellose 0.3% Ophth Soln 15 ML Bottle EYEBOTH PRN (14:58)
[2021-12-30] MEDS: Nortriptyline 25 MG Cap PO PRN (20:25)
[2021-12-31] MEDS: Pantoprazole 40 MG Tab.CR PO SCH (06:28)
[2021-12-31] MEDS: Sodium Chloride 0.9% 10 ML Syringe FLUSH PRN ×2 (06:38→11:03)
[2021-12-31 07:44] LABS: ANION GAP 9.4 mmol/L (5-15)
[2021-12-31] MEDS: Sodium Chloride 0.9% 10 ML Syringe FLUSH SCH ×2 (09:03→19:39)
[2021-12-31] MEDS: Enoxaparin 40 MG/0.4 ML Syringe SUBCUT SCH (09:05)
[2021-12-31] MEDS: Acetaminophen 325 MG Tab PO PRN (09:10)
[2021-12-31] MEDS: Furosemide 20 MG Tab PO SCH (09:11)
[2021-12-31] MEDS: Lisinopril 20 MG Tab PO SCH (09:11)
[2021-12-31] MEDS: Rifampin 150 MG Cap PO SCH (09:11)
[2021-12-31] MEDS: amLODIPine 10 MG Tab PO SCH (09:12)
[2021-12-31] MEDS: Potassium Chloride 10 MEQ Tab.ER PO SCH (09:12)
[2021-12-31] MEDS: oxyCODONE 5 MG Tab PO PRN (09:13)
[2021-12-31] MEDS: Pregabalin 50 MG Cap PO SCH ×3 (09:13→19:29)
[2021-12-31] MEDS: prednisoLONE Acetate 1% Ophth Susp 5 ML Bottle EYEBOTH SCH ×2 (09:14→19:38)
[2021-12-31] MEDS: Heparin Sodium 100 Units/ML 3 ML Syringe FLUSH SCH ×2 (11:04→20:11)
[2021-12-31] MEDS: Acetaminophen/HYDROcodone 325-5 MG Tab PO PRN (19:29)
[2021-12-31] MEDS: Nortriptyline 25 MG Cap PO PRN (19:29)
[2022-01-01] MEDS: Acetaminophen/HYDROcodone 325-5 MG Tab PO PRN ×2 (01:39→16:28)
[2022-01-01] MEDS: Pantoprazole 40 MG Tab.CR PO SCH (06:38)
[2022-01-01] MEDS: oxyCODONE 5 MG Tab PO PRN (08:10)
[2022-01-01] MEDS: Enoxaparin 40 MG/0.4 ML Syringe SUBCUT SCH (08:10)
[2022-01-01] MEDS: amLODIPine 10 MG Tab PO SCH (08:11)
[2022-01-01] MEDS: Lisinopril 20 MG Tab PO SCH (08:11)
[2022-01-01] MEDS: Potassium Chloride 10 MEQ Tab.ER PO SCH (08:12)
[2022-01-01] MEDS: Pregabalin 50 MG Cap PO SCH ×2 (08:12→19:17)
[2022-01-01] MEDS: prednisoLONE Acetate 1% Ophth Susp 5 ML Bottle EYEBOTH SCH ×2 (08:16→19:18)
[2022-01-01] MEDS: Heparin Sodium 100 Units/ML 3 ML Syringe FLUSH SCH ×2 (09:09→20:00)
[2022-01-01] MEDS: Sodium Chloride 0.9% 10 ML Syringe FLUSH SCH ×2 (09:09→19:17)
[2022-01-01] MEDS: Rifampin 150 MG Cap PO SCH (16:28)
[2022-01-01] MEDS: Nortriptyline 25 MG Cap PO PRN (19:17)
[2022-01-02] MEDS: Acetaminophen/HYDROcodone 325-5 MG Tab PO PRN ×3 (02:44→18:17)
[2022-01-02] MEDS: Acetaminophen 325 MG Tab PO PRN ×2 (06:15→19:51)
[2022-01-02] MEDS: Pantoprazole 40 MG Tab.CR PO SCH (06:15)
[2022-01-02] MEDS: Rifampin 150 MG Cap PO SCH (08:36)
[2022-01-02] MEDS: amLODIPine 10 MG Tab PO SCH (08:36)
[2022-01-02] MEDS: Enoxaparin 40 MG/0.4 ML Syringe SUBCUT SCH (08:37)
[2022-01-02] MEDS: Potassium Chloride 10 MEQ Tab.ER PO SCH (08:37)
[2022-01-02] MEDS: Lisinopril 20 MG Tab PO SCH (08:37)
[2022-01-02] MEDS: Furosemide 20 MG Tab PO SCH (08:37)
[2022-01-02] MEDS: Pregabalin 50 MG Cap PO SCH ×2 (08:37→19:51)
[2022-01-02] MEDS: Sodium Chloride 0.9% 10 ML Syringe FLUSH SCH ×2 (08:38→19:52)
[2022-01-02] MEDS: prednisoLONE Acetate 1% Ophth Susp 5 ML Bottle EYEBOTH SCH ×2 (08:39→19:52)
[2022-01-02] MEDS: Heparin Sodium 100 Units/ML 3 ML Syringe FLUSH SCH ×2 (09:37→20:30)
[2022-01-02] MEDS: BISMUTH SUBSALICYLATE 262 MG PO PRN (13:13)
[2022-01-02] MEDS: Ondansetron 4 MG Tab.DIS PO PRN (13:15)
[2022-01-02] MEDS: Nortriptyline 25 MG Cap PO PRN (19:51)
[2022-01-03] MEDS: Acetaminophen/HYDROcodone 325-5 MG Tab PO PRN ×3 (06:51→22:12)
[2022-01-03] MEDS: Pantoprazole 40 MG Tab.CR PO SCH (06:51)
[2022-01-03] MEDS: Enoxaparin 40 MG/0.4 ML Syringe SUBCUT SCH (08:52)
[2022-01-03] MEDS: Rifampin 150 MG Cap PO SCH (08:52)
[2022-01-03] MEDS: Potassium Chloride 10 MEQ Tab.ER PO SCH (08:53)
[2022-01-03] MEDS: amLODIPine 10 MG Tab PO SCH (08:53)
[2022-01-03] MEDS: Lisinopril 20 MG Tab PO SCH (08:53)
[2022-01-03] MEDS: Pregabalin 50 MG Cap PO SCH ×2 (08:53→20:23)
[2022-01-03] MEDS: Sodium Chloride 0.9% 10 ML Syringe FLUSH SCH ×2 (08:54→20:26)
[2022-01-03] MEDS: Furosemide 20 MG Tab PO SCH (08:54)
[2022-01-03] MEDS: prednisoLONE Acetate 1% Ophth Susp 5 ML Bottle EYEBOTH SCH ×2 (08:55→20:24)
[2022-01-03] MEDS: Fluticasone Propionate Nasal Spray 9.9 ML BOTTLE NASBOTH PRN (08:56)
[2022-01-03] MEDS: Heparin Sodium 100 Units/ML 3 ML Syringe FLUSH SCH ×2 (09:48→20:58)
[2022-01-03] MEDS: Hypromellose 0.3% Ophth Soln 15 ML Bottle EYEBOTH PRN (15:26)
[2022-01-03] MEDS: Acetaminophen 325 MG Tab PO PRN (20:23)
[2022-01-04] MEDS: Acetaminophen/HYDROcodone 325-5 MG Tab PO PRN ×3 (04:04→16:00)
[2022-01-04] MEDS: Pantoprazole 40 MG Tab.CR PO SCH (06:18)
[2022-01-04] MEDS: BISMUTH SUBSALICYLATE 262 MG PO PRN (08:46)
[2022-01-04] MEDS: Pregabalin 50 MG Cap PO SCH ×2 (08:47→19:50)
[2022-01-04] MEDS: Furosemide 20 MG Tab PO SCH (08:47)
[2022-01-04] MEDS: Enoxaparin 40 MG/0.4 ML Syringe SUBCUT SCH (08:47)
[2022-01-04] MEDS: Lisinopril 20 MG Tab PO SCH (08:48)
[2022-01-04] MEDS: Rifampin 150 MG Cap PO SCH (08:49)
[2022-01-04] MEDS: Potassium Chloride 10 MEQ Tab.ER PO SCH (08:49)
[2022-01-04] MEDS: amLODIPine 10 MG Tab PO SCH (08:49)
[2022-01-04] MEDS: prednisoLONE Acetate 1% Ophth Susp 5 ML Bottle EYEBOTH SCH ×2 (08:49→19:53)
[2022-01-04] MEDS: Sodium Chloride 0.9% 10 ML Syringe FLUSH SCH ×2 (08:50→19:53)
[2022-01-04] MEDS: Heparin Sodium 100 Units/ML 3 ML Syringe FLUSH SCH ×2 (09:25→20:22)
[2022-01-04] MEDS: Nortriptyline 25 MG Cap PO PRN (20:23)
[2022-01-05] MEDS: Acetaminophen/HYDROcodone 325-5 MG Tab PO PRN ×2 (00:46→08:08)
[2022-01-05] MEDS: Hypromellose 0.3% Ophth Soln 15 ML Bottle EYEBOTH PRN (00:47)
[2022-01-05 06:04] VITALS: BP 174/79; PULSE 89
[2022-01-05] MEDS: Pantoprazole 40 MG Tab.CR PO SCH (06:08)
[2022-01-05] MEDS: amLODIPine 10 MG Tab PO SCH (08:07)
[2022-01-05] MEDS: Lisinopril 20 MG Tab PO SCH (08:07)
[2022-01-05] MEDS: Furosemide 20 MG Tab PO SCH (08:07)
[2022-01-05] MEDS: Rifampin 150 MG Cap PO SCH (08:07)
[2022-01-05] MEDS: Potassium Chloride 10 MEQ Tab.ER PO SCH (08:08)
[2022-01-05] MEDS: Pregabalin 50 MG Cap PO SCH (08:08)
[2022-01-05] MEDS: Enoxaparin 40 MG/0.4 ML Syringe SUBCUT SCH (08:08)
[2022-01-05] MEDS: Sodium Chloride 0.9% 10 ML Syringe FLUSH SCH (08:08)
[2022-01-05] MEDS: Fluticasone Propionate Nasal Spray 9.9 ML BOTTLE NASBOTH PRN (08:09)
[2022-01-05] MEDS: prednisoLONE Acetate 1% Ophth Susp 5 ML Bottle EYEBOTH SCH (08:10)
[2022-01-05] MEDS: Heparin Sodium 100 Units/ML 3 ML Syringe FLUSH SCH (08:35)
== END 2022-01-05 16:30 | disposition home or self-care (01) | DRG 560 ==
LOC: VM.MS 08:00 → UNDOADMIN 08:00 → VM.MS 12:00 → UNDOADMIN 12:42 → UNDODISIN 12-15 12:28 → VM.MS 12-19 17:09
PROVIDERS: ADMIT Internal Medicine; ATTEND Internal Medicine
DX: T84.53XA Infection and inflammatory reaction due to internal right knee prosthesis, initial encounter (principal); Z68.41 Body mass index [BMI] 40.0-44.9, adult; R19.7 Diarrhea, unspecified; E11.9 Type 2 diabetes mellitus without complications; I10 Essential (primary) hypertension; M79.7 Fibromyalgia; B95.62 Methicillin resistant Staphylococcus aureus infection as the cause of diseases classified elsewhere; K21.9 Gastro-esophageal reflux disease without esophagitis; F43.21 Adjustment disorder with depressed mood; M54.9 Dorsalgia, unspecified; G89.29 Other chronic pain; K76.0 Fatty (change of) liver, not elsewhere classified; E66.01 Morbid (severe) obesity due to excess calories; E55.9 Vitamin D deficiency, unspecified; J45.30 Mild persistent asthma, uncomplicated; Z86.16 Personal history of COVID-19; Z88.6 Allergy status to analgesic agent; Z88.2 Allergy status to sulfonamides; Z88.8 Allergy status to other drugs, medicaments and biological substances; Z79.899 Other long term (current) drug therapy; Z98.41 Cataract extraction status, right eye; Z98.42 Cataract extraction status, left eye
CPT/HCPCS: 36415; 80053; 80202; 82565; 82947; 82977; 85025; 85652; 86140; 87493; 97110-GP; 97116-GP; 97163-GP; 97165-GO; 97535-GO; A9270-GY; J1642; J1650; J2405; J3370; J3490; J7050